=== PATIENT | male | born 1975 | race Caucasian/White ===

== ENCOUNTER → 2016-10-21 | Outpatient (CLI) | payer OTHER ==
[~2016-10-21] MED LIST: ALBU1AER9 INH; ATOR-22 PO; BUSP15TA70 PO; CHOL200027 PO; EFFSR150 PO; FEXO1TAB49 PO; FLUT0.15 NAE; OMEP20CA9 PO; RISP4TAB7 PO; TOPI25TA55 PO; TOPI50TA16 PO; VENL150C56 PO; VENL75CA PO; ZNTT/150 PO
[2016-10-21 12:54] LABS: BLOOD UREA NITROGEN 13 mg/dl (7-18); BUN/CREATININE RATIO 10.4 (10-20); CALCIUM 8.7 mg/dl (8.5-10.1); CARBON DIOXIDE 28 mmol/L (21-32); CHLORIDE 107 mmol/L (98-107); CHOLESTEROL 148 mg/dl (0-200); GLUCOSE 96 mg/dl (70-99); POTASSIUM 3.7 mmol/L (3.5-5.1); SODIUM 142 mmol/L (136-145); TRIGLYCERIDES 111 mg/dl (0-150); VERY LOW DENSITY LIPOPROT CALC 22 mg/dl
[2016-10-21 13:05] LABS: CHOLESTEROL/HDL RATIO 2.8; HDL CHOLESTEROL 53 mg/dl; LDL CHOLESTEROL CALCULATED 73 mg/dl
[2016-10-21 13:07] LABS: ESTIMATED AVERAGE GLUCOSE 111 mg/dl; HA1C FLAG Normal (Normal)
== END | disposition home or self-care (01) ==
LOC: C.LABPVFM 09:49
PROVIDERS: ATTEND Family Medicine
DX: J45.909 Unspecified asthma, uncomplicated (principal); E78.2 Mixed hyperlipidemia; R73.9 Hyperglycemia, unspecified; F30.9 Manic episode, unspecified

== ENCOUNTER → 2017-05-12 | Outpatient (CLI) | payer OTHER ==
[2017-05-12 13:31] LABS: ALT/SGPT 41 U/L (12-78); BLOOD UREA NITROGEN 13 mg/dl (7-18); CALCIUM 9.3 mg/dl (8.5-10.1); CARBON DIOXIDE 26 mmol/L (21-32); CHLORIDE 107 mmol/L (98-107); CHOLESTEROL 141 mg/dl (0-200); GLUCOSE 103 mg/dl (70-99); POTASSIUM 3.8 mmol/L (3.5-5.1); SODIUM 142 mmol/L (136-145); TRIGLYCERIDES 99 mg/dl (0-150); VERY LOW DENSITY LIPOPROT CALC 20 mg/dl
[2017-05-12 13:33] LABS: ALB/GLOB RATIO 1.1 (0.9-2); ALKALINE PHOSPHATASE 80 U/L (45-117); AST/SGOT 17 U/L (15-37); CHOLESTEROL/HDL RATIO 2.9; HDL CHOLESTEROL 48 mg/dl; LDL CHOLESTEROL CALCULATED 73 mg/dl
== END | disposition home or self-care (01) ==
LOC: C.LABPVFM 08:48
PROVIDERS: ATTEND Family Medicine
DX: E78.2 Mixed hyperlipidemia (principal); F30.9 Manic episode, unspecified; J45.909 Unspecified asthma, uncomplicated; E66.3 Overweight; K21.9 Gastro-esophageal reflux disease without esophagitis; Z13.21 Encounter for screening for nutritional disorder

== ENCOUNTER 2017-07-19 13:13 | Emergency (ER) | payer OTHER ==
[~2017-07-19] VITALS: Ht 172.7 cm; Wt 114.3 kg
[~2017-07-19 13:13] MED LIST changes: -TOPI25TA55 PO; -VENL150C56 PO; -ZNTT/150 PO
[2017-07-19 13:16] VITALS: TEMP 36.8; Ht 172.7 cm; Wt 114.3 kg
[2017-07-19] MEDS ORDERED: RISP4TAB7 PO (13:33)
[2017-07-19] MEDS ORDERED: VENL75CA PO (13:33)
[2017-07-19] MEDS ORDERED: VENL150C56 PO (13:33)
[2017-07-19] MEDS ORDERED: ZNTT/150 PO (13:33)
[2017-07-19] MEDS ORDERED: BUSP15TA70 PO (13:33)
[2017-07-19] MEDS ORDERED: TOPI25TA55 PO (13:33)
[2017-07-19] MEDS ORDERED: ATOR-22 PO (13:33)
[2017-07-19] MEDS ORDERED: ONDANSETRON INJ 2 MG/ML 2 ML VIAL IV STA (13:47)
[2017-07-19] MEDS ORDERED: SODIUM CHLORIDE 0.9% 1000ML 1,000 ML IV STA (13:47)
[2017-07-19] MEDS ORDERED: OPTIRAY 320 IV PRN (14:00)
[2017-07-19 15:10] LABS: BASO % 0.2 %; BASO ABS # 0.02 K/uL (0-0.2); COMPLETE YES; EOS % 2.1 %; HEMATOCRIT 42.4 % (42-52); IG% 0.2 %; LYMPH % 22.7 %; LYMPH ABS # 1.84 K/uL (1.2-3.4); MEAN CELL VOLUME 89.3 fL (80-100); MEAN CORPUSCULAR HEMOGLOBIN 29.3 pg (25-34); MEAN CORPUSCULAR HGB CONC 32.8 g/dl (32-36); MEAN PLATELET VOLUME 10.2 fL (7.4-10.4); MONO % 12.9 %; NEUT % 61.9 %; PLATELET COUNT 189 K/uL (130-400); RED BLOOD COUNT 4.75 M/uL (4.7-6.1); WHITE BLOOD COUNT 8.12 K/uL (4.8-10.8)
[2017-07-19 15:18] LABS: BUN/CREATININE RATIO 9.5 (10-20); CREATININE 1.1 mg/dl (0.60-1.40); POTASSIUM 3.6 mmol/L (3.5-5.1)
[2017-07-19 15:30] LABS: URINE APPEARANCE CLEAR (CLEAR); URINE BILIRUBIN NEG (NEG); URINE COLOR YELLOW; URINE NITRITE NEG (NEG); URINE PH 6.5 (4.5-7.5); URINE SPECIFIC GRAVITY 1.012 (1.000-1.030); UROBILINOGEN NEG (NEG)
[2017-07-19 15:40] LABS: MANUAL MICROSCOPIC REQUIRED? NO; REVIEW REQ? NO
--- NOTE | 2017-07-19 17:13 | DIAGNOSTIC IMAGING REPORT ---
CT OF THE ABDOMEN AND PELVIS WITH CONTRAST CLINICAL HISTORY: Right lower quadrant abdominal pain. COMPARISON STUDY: CT of the abdomen and pelvis August 11, 2016. TECHNIQUE: Following IV administration of 116 mL of Optiray-320, axial images of the abdomen and pelvis were obtained from the lung bases to the proximal femurs. Images were reviewed in the axial, sagittal, and coronal planes. IV contrast was administered without complication. A dose lowering technique was utilized adhering to the principles of ALARA. Oral contrast was administered. CT DOSE: 1000.27 mGy.cm FINDINGS: There is suspected fatty infiltration of the liver. The spleen, adrenal glands, kidneys and pancreas are normal. There is no hydronephrosis. No biliary or pancreatic ductal dilatation is present. There is no peripancreatic or pericholecystic infiltration. No enlarged lymph nodes are identified. The caliber and wall thickness of small and large bowel are normal. The appendix is normal. There is no free fluid. No suspicious osseous lesions are present. Note is made of a small fat-containing umbilical hernia. IMPRESSION: No acute process within the abdomen or pelvis. Normal appendix. Electronically signed by: Ian Diana M.D. 07/19/2017 5:11 PM Dictated Date/Time: 07/19/2017 5:06 PM
[2017-07-19 19:30] VITALS: BP 125/73; PULSE 87; O2SAT 100
--- NOTE | 2017-07-19 20:12 | EMERGENCY ROOM VISIT NOTE ---
History First contact with patient: 13:28 Chief Complaint: ABDOMINAL PAIN Stated Complaint: LOWER ABD/RIGHT SIDE PAIN Nursing Triage Summary: Pt presents with right sided abd pain since yesterday. Denies nausea, vomiting, diarrhea or constipation. Denies back pain. History of Present Illness The patient is a 42 year old male who presents to the Emergency Room with complaints of approximately 24 hours a right lower quadrant abdominal pain that is becoming more constant and painful. The patient reports that his symptoms are worsened with ambulation and bending over, as well as rolling over onto his side while sleeping. He denies any back pain, urinary symptoms, diarrhea or constipation. He has regular daily soft stools. He has had a prior history of rectal bleeding, and had a normal colonoscopy last year with Dr. Cheng. The patient denies any other recent trauma to the abdomen, back or pelvis. He denies any other recent illnesses or fever. He rates his discomfort a 7 out of 10. Review of Systems HEENT: Denies dizziness, visual problems, hearing loss, tinnitus. Denies difficulty swallowing or oral lesions. PULMONARY: Denies cough, shortness of breath, sputum production or hemoptysis. CARDIOVASCULAR: Denies chest pain, palpitations, dyspnea on exertion, orthopnea or peripheral edema. GASTROINTESTINAL: Denies diarrhea, constipation, nausea or vomiting. Otherwise see history of present illness. GENITOURINARY: Denies dysuria, frequency, urgency or nocturia. NEUROLOGIC: Denies history of epilepsy, CVA, TIA or chronic headaches. MUSCULOSKELETAL: Denies history of joint tenderness/swelling. SKIN: Denies rashes or lesions. PSYCHIATRIC: Denies history of depression or mental illness. ENDOCRINE: Denies history of diabetes or thyroid disorders. Past Medical/Surgical History Medical Problems: (1) Bipolar Disorder, Unspecified Medical Problems: (1) Anxiety Disorder, Unspecified (2) Asthma (3) Bipolar Disorder, Unspecified (4) Gastro-Esophageal Reflux Disease Without Esophagitis (5) GERD (gastroesophageal reflux disease) (6) Hyperlipidemia Nec/Nos (7) Major Depressive Disorder, Single Episode, Unspecified Surgical Problems: (1) History of hand surgery (2) Status post bunionectomy Family History Diabetes mellitus FH: cancer FH: gallbladder disease FH: heart disease FH: lung disease Hypertension Social History Smoking Status: Never Smoker Alcohol Use: none Drug Use: none Marital Status: Housing Status: lives with family Occupation Status: employed Current/Historical Medications Scheduled Atorvastatin (Lipitor), 20 MG PO DAILY Buspirone Hcl (Buspar), 15 MG PO BID Ranitidine (Zantac), 150 MG PO BID Risperidone (Risperdal), 4 MG PO QPM Topiramate (Topamax), 25 MG PO BID Venlafaxine Hcl (Effexor Extended Rel), 150 MG PO DAILY Venlafaxine Hcl (Effexor Xr), 75 MG PO DAILY Allergies Coded Allergies: No Known Allergies (Verified , 07/19/17) Physical Exam Vital Signs Date Time Temp Pulse Resp B/P (MAP) Pulse Ox O2 Delivery O2 Flow Rate FiO2 07/19/17 19:30 87 18 125/73 100 07/19/17 18:01 73 16 147/95 97 Room Air 07/19/17 16:44 67 15 155/97 95 Room Air 07/19/17 15:30 72 18 130/88 98 Room Air 07/19/17 15:16 76 15 132/88 99 Room Air 07/19/17 14:10 80 15 130/81 94 Room Air 07/19/17 13:16 36.8 92 18 121/78 95 Room Air Physical Exam CONSTITUTIONAL: Obese male, alert and oriented X 3 with positive affect. She does not appear in any acute distress or discomfort. HEENT: Normocephalic, atraumatic. Pupils equal, round and reactive. Ears and nares are clear. OROPHARYNX: Mucous membranes are dry. No tonsillar hypertrophy or posterior pharyngeal erythema. NECK: Full active range of motion without discomfort. RESPIRATORY: Clear to auscultation bilaterally with no wheezing, crackles, rhonchi or stridor. CARDIOVASCULAR: Regular rate and rhythm with no murmurs, rubs or gallops. GASTROINTESTINAL: Bowel sounds present in all quadrants. Patient has positive McBurney's point tenderness. Negative Rovsing sign. Mildly positive psoas and obturator sign. Negative CVA tenderness. No abdominal rigidity, guarding or rebound. MUSCULOSKELETAL: Full range of motion of all joints without discomfort. INTEGUMENTARY: No rash or other significant dermatologic conditions noted. HEMATOLOGIC: No ecchymosis or petechiae. NEUROLOGIC: No focal neurologic deficits noted. Medical Decision & Procedures ER Provider Diagnostic Interpretation: Enhanced CT of the abdomen and pelvis does not show any evidence for acute appendicitis or other acute intra-abdominal findings. Radiologist report is as follows: CT OF THE ABDOMEN AND PELVIS WITH CONTRAST CLINICAL HISTORY: Right lower quadrant abdominal pain. COMPARISON STUDY: CT of the abdomen and pelvis August 11, 2016. TECHNIQUE: Following IV administration of 116 mL of Optiray-320, axial images of the abdomen and pelvis were obtained from the lung bases to the proximal femurs. Images were reviewed in the axial, sagittal, and coronal planes. IV contrast was administered without complication. A dose lowering technique was utilized adhering to the principles of ALARA. Oral contrast was administered. CT DOSE: 1000.27 mGy.cm FINDINGS: There is suspected fatty infiltration of the liver. The spleen, adrenal glands, kidneys and pancreas are normal. There is no hydronephrosis. No biliary or pancreatic ductal dilatation is present. There is no peripancreatic or pericholecystic infiltration. No enlarged lymph nodes are identified. The caliber and wall thickness of small and large bowel are normal. The appendix is normal. There is no free fluid. No suspicious osseous lesions are present. Note is made of a small fat-containing umbilical hernia. IMPRESSION: No acute process within the abdomen or pelvis. Normal appendix. Laboratory Results 07/19/17 14:00 Red Blood Count 4.75, Mean Corpuscular Volume 89.3, Mean Corpuscular Hemoglobin 29.3, Mean Corpuscular Hemoglobin Concent 32.8, Mean Platelet Volume 10.2, Neutrophils (%) (Auto) 61.9, Lymphocytes (%) (Auto) 22.7, Monocytes (%) (Auto) 12.9, Eosinophils (%) (Auto) 2.1, Basophils (%) (Auto) 0.2, Neutrophils # (Auto ) 5.02, Lymphocytes # (Auto) 1.84, Monocytes # (Auto) 1.05, Eosinophils # (Auto ) 0.17, Basophils # (Auto) 0.02 07/19/17 14:00 Test 07/19/17 14:00 07/19/17 15:10 White Blood Count 8.12 K/uL (4.8-10.8) Red Blood Count 4.75 M/uL (4.7-6.1) Hemoglobin 13.9 g/dL (14.0-18.0) Hematocrit 42.4 % (42-52) Mean Corpuscular Volume 89.3 fL (80-100) Mean Corpuscular Hemoglobin 29.3 pg (25-34) Mean Corpuscular Hemoglobin Concent 32.8 g/dl (32-36) Platelet Count 189 K/uL (130-400) Mean Platelet Volume 10.2 fL (7.4-10.4) Neutrophils (%) (Auto) 61.9 % Lymphocytes (%) (Auto) 22.7 % Monocytes (%) (Auto) 12.9 % Eosinophils (%) (Auto) 2.1 % Basophils (%) (Auto) 0.2 % Neutrophils # (Auto) 5.02 K/uL (1.4-6.5) Lymphocytes # (Auto) 1.84 K/uL (1.2-3.4) Monocytes # (Auto) 1.05 K/uL (0.11-0.59) Eosinophils # (Auto) 0.17 K/uL (0-0.5) Basophils # (Auto) 0.02 K/uL (0-0.2) RDW Standard Deviation 45.8 fL (36.4-46.3) RDW Coefficient of Variation 14.0 % (11.5-14.5) Immature Granulocyte % (Auto) 0.2 % Immature Granulocyte # (Auto) 0.02 K/uL (0.00-0.02) Anion Gap 9.0 mmol/L (3-11) Est Creatinine Clear Calc Drug Dose 108.4 ml/min Estimated GFR () 96.1 Estimated GFR (Non- 82.9 BUN/Creatinine Ratio 9.5 (10-20) Calcium Level 9.0 mg/dl (8.5-10.1) Total Bilirubin 0.5 mg/dl (0.2-1) Direct Bilirubin 0.1 mg/dl (0-0.2) Aspartate Amino Transf (AST/SGOT) 15 U/L (15-37) Alanine Aminotransferase (ALT/SGPT) 29 U/L (12-78) Alkaline Phosphatase 87 U/L (45-117) Total Protein 7.2 gm/dl (6.4-8.2) Albumin 3.6 gm/dl (3.4-5.0) Lipase 124 U/L (73-393) Urine Color YELLOW Urine Appearance CLEAR (CLEAR) Urine pH 6.5 (4.5-7.5) Urine Specific [place]idden 1.012 (1.000-1.030) Urine Protein NEG (NEG) Urine Glucose (UA) NEG (NEG) Urine Ketones NEG (NEG) Urine Occult Blood NEG (NEG) Urine Nitrite NEG (NEG) Urine Bilirubin NEG (NEG) Urine Urobilinogen NEG (NEG) Urine Leukocyte Esterase NEG (NEG) The above labs were reviewed. Medications Administered Medications (Trade) Dose Ordered Sig/Laura Route Start Time Stop Time Status Last Admin Dose Admin Sodium Chloride 1,000 ml @ 999 mls/hr Q1H1M STAT IV 07/19/17 13:47 07/19/17 14:47 DC 07/19/17 14:06 999 MLS/HR Ondansetron HCl (Zofran Inj) 4 mg NOW STAT IV 07/19/17 13:47 07/19/17 13:49 DC 07/19/17 14:05 4 MG Procedure 1. IV hydration: The patient was administered normal saline 1 L bolus 2. IV medications: Zofran 4 mg IVP ED Course Patient history and physical exam were performed. Nurse's notes were reviewed. I also reviewed a portion of prior medical records, including the patient's normal colonoscopy report from January 2016, and normal ED evaluation in July 2016 with a normal IV contrast only CT of the abdomen and pelvis. Vital signs were reviewed and were normal. The patient is afebrile and not tachycardic. IV access was established and labs were drawn. The patient was hydrated with normal saline, and was administered IV Zofran to prevent nausea. Review of labs shows no acute abnormalities. Enhanced CT of the abdomen and pelvis was also normal. The patient was advised of his normal CT findings, however advised that this may also be an early appendicitis. He was encouraged to follow-up with his PCP for recheck in 48 hours, returning to the emergency department for any progressively worsening symptoms, fever, vomiting or rectal bleeding. Ibuprofen or Tylenol as needed for pain. The patient was happy with plan of care, and voiced understanding of all discharge instructions. Medical Decision Patient presents to the emergency department with less than 24-hour history of right lower quadrant abdominal pain. His clinical exam that showed notable right lower quadrant tenderness to palpation. His laboratory studies are normal , showing no leukocytosis. He is also afebrile. Enhanced CT of the abdomen and pelvis does not show any evidence for acute appendicitis, mesenteric adenitis, obstruction, diverticulitis or other acute findings. Urinalysis is not suggestive of UTI. Impression Primary Impression: Right lower quadrant abdominal pain Departure Information Referrals Yojana Talbert M.D. (PCP) Patient Instructions My [facility]
== END 2017-07-19 19:30 | disposition home or self-care (01) ==
LOC: C.EDB 13:14 → C.EDC 19:30
DX: R10.31 Right lower quadrant pain (principal); F31.9 Bipolar disorder, unspecified; F41.9 Anxiety disorder, unspecified; J45.909 Unspecified asthma, uncomplicated; K21.9 Gastro-esophageal reflux disease without esophagitis; E78.5 Hyperlipidemia, unspecified; F32.9 Major depressive disorder, single episode, unspecified; Z83.3 Family history of diabetes mellitus; Z82.49 Family history of ischemic heart disease and other diseases of the circulatory system

== ENCOUNTER → 2017-11-09 | Outpatient (CLI) | payer OTHER ==
[~2017-11-09] MED LIST changes: -ALBU1AER9 INH; -CHOL200027 PO; -EFFSR150 PO; -FEXO1TAB49 PO; -FLUT0.15 NAE; -OMEP20CA9 PO; +TOPI25TA55 PO; -TOPI50TA16 PO; +VENL150C56 PO; +ZNTT/150 PO
[2017-11-09 13:30] LABS: ALBUMIN 3.8 gm/dl (3.4-5.0); ALT/SGPT 37 U/L (12-78); AST/SGOT 17 U/L (15-37); BLOOD UREA NITROGEN 14 mg/dl (7-18); CARBON DIOXIDE 28 mmol/L (21-32); CREATININE 1.17 mg/dl (0.60-1.40); GLUCOSE 101 mg/dl (70-99); POTASSIUM 3.7 mmol/L (3.5-5.1); SODIUM 137 mmol/L (136-145)
[2017-11-09 13:33] LABS: ALKALINE PHOSPHATASE 80 U/L (45-117); CHOLESTEROL 142 mg/dl (0-200); LDL CHOLESTEROL CALCULATED 70 mg/dl; TOTAL PROTEIN 7.5 gm/dl (6.4-8.2)
[2017-11-10 06:27] LABS: HEMOGLOBIN A1C 5.5 % (4.5-5.6)
== END | disposition home or self-care (01) ==
LOC: C.LABPVFM 08:23
PROVIDERS: ATTEND Family Medicine
DX: Z51.81 Encounter for therapeutic drug level monitoring (principal); Z79.899 Other long term (current) drug therapy; E78.2 Mixed hyperlipidemia; J30.9 Allergic rhinitis, unspecified; K21.9 Gastro-esophageal reflux disease without esophagitis; F31.9 Bipolar disorder, unspecified; R73.9 Hyperglycemia, unspecified

== ENCOUNTER → 2018-05-04 | Outpatient (CLI) | payer OTHER ==
[~2018-05-04] MED LIST changes: +RANI150T85 PO; -VENL75CA PO; +VENL75CA94 PO; -ZNTT/150 PO
[2018-05-04 13:38] LABS: HEMOGLOBIN A1C 5.7 % (4.5-5.6)
[2018-05-04 13:56] LABS: ALBUMIN 4.2 gm/dl (3.4-5.0); ALKALINE PHOSPHATASE 83 U/L (45-117); ALT/SGPT 38 U/L (12-78); AST/SGOT 15 U/L (15-37); BLOOD UREA NITROGEN 17 mg/dl (7-18); CALCIUM 9.2 mg/dl (8.5-10.1); CARBON DIOXIDE 24 mmol/L (21-32); CHOLESTEROL 163 mg/dl (0-200); CREATININE 1.09 mg/dl (0.60-1.40); GLUCOSE 122 mg/dl (70-99); LDL CHOLESTEROL CALCULATED 89 mg/dl; POTASSIUM 3.9 mmol/L (3.5-5.1); SODIUM 139 mmol/L (136-145); TOTAL PROTEIN 7.7 gm/dl (6.4-8.2)
== END | disposition home or self-care (01) ==
LOC: C.LABPVFM 07:54
PROVIDERS: ATTEND Family Medicine
DX: Z79.899 Other long term (current) drug therapy (principal); E78.2 Mixed hyperlipidemia; J45.909 Unspecified asthma, uncomplicated; R73.9 Hyperglycemia, unspecified; F31.9 Bipolar disorder, unspecified; K21.9 Gastro-esophageal reflux disease without esophagitis

== ENCOUNTER → 2018-05-18 | Outpatient (CLI) | payer OTHER ==
[~2018-05-18] MED LIST changes: +VENL75CA88 PO; -VENL75CA94 PO
== END | disposition home or self-care (01) ==
LOC: C.LABPVFM 08:19
PROVIDERS: ATTEND Family Medicine
DX: N52.9 Male erectile dysfunction, unspecified (principal)